=== PATIENT | female | born 1980 | race Caucasian/White ===

== ENCOUNTER 2017-04-28 19:49 | Emergency (ER) | payer MEDICAID ==
[~2017-04-28] VITALS: Ht 160 cm; Wt 70.9 kg
[2017-04-29] MEDS ORDERED: ONDANSETRON 4MG ODT PO STA (01:31)
[2017-04-29] MEDS ORDERED: KETOROLAC 60MG/2ML VIAL IM STA (01:31)
[2017-04-29 01:47] LABS: BASOPHILS % 0.6 % (0.0-2.0); EOSINOPHILS % 2.4 % (0.0-5.0); HEMATOCRIT. 36.5 % (36.0-48.0); HEMOGLOBIN. 12.6 g/dL (12.0-16.0); LYMPHOCYTES % 25.4 % (20.0-50.0); MEAN CORPUSCULAR HEMOGLOBIN 32.4 pg (28.0-32.0); MEAN CORPUSCULAR VOLUME 94.2 fL (81.0-99.0); MEAN PLATELET VOLUME 8.6 fl (7.4-10.4); MONOCYTES % 7.6 % (2.0-8.0); PLATELET 259 x1000/uL (130-400); RED BLOOD CELL COUNT 3.88 mill/uL (4.2-5.4); RED CELL DISTRIBUTION WIDTH 15.1 % (11.6-14.6)
[2017-04-29 01:53] LABS: CHLORIDE 107 mEq/L (98-107)
[2017-04-29 01:54] LABS: CLARITY URINE CLEAR (CLEAR); COLOR URINE YELLOW (YELLOW); GLUCOSE URINE NEGATIVE (NEGATIVE); KETONES URINE NEGATIVE (NEGATIVE); LEUKOCYTE ESTERASE URINE 1+ (NEGATIVE); NITRITE URINE NEGATIVE (NEGATIVE); OCCULT BLOOD URINE 1+ (NEGATIVE); PH URINE 5.5 (4.5-8.0); PROTEIN URINE NEGATIVE (NEGATIVE); SPECIFIC GRAVITY URINE 1.023 (1.005-1.030)
[2017-04-29 02:03] LABS: CARBON DIOXIDE 27 mEq/L (21-32)
[2017-04-29 02:15] VITALS: BP 137/81
== END 2017-04-29 02:58 | disposition home or self-care (01) ==
LOC: ER 19:49
DX: N39.0 Urinary tract infection, site not specified (principal); J45.909 Unspecified asthma, uncomplicated; F17.210 Nicotine dependence, cigarettes, uncomplicated; F12.10 Cannabis abuse, uncomplicated
CPT/HCPCS: 36415; 80053; 81001; 83690; 85025; 96372; 99284; J1885; Q0162

== ENCOUNTER 2018-06-13 19:05 | Emergency (ER) | payer MEDICAID ==
[~2018-06-13] VITALS: Ht 160 cm; Wt 73.0 kg
[2018-06-13] MEDS ORDERED: IBUPROFEN 600MG TABLET PO ONE (20:15)
[2018-06-13 20:36] VITALS: BP 117/82
== END 2018-06-13 22:17 | disposition home or self-care (01) ==
LOC: ER 19:05
DX: L03.116 Cellulitis of left lower limb (principal); F17.210 Nicotine dependence, cigarettes, uncomplicated
CPT/HCPCS: 73562; 99284

== ENCOUNTER 2019-01-04 13:37 | Emergency (ER) | payer MEDICAID ==
[~2019-01-04] VITALS: Ht 157.5 cm; Wt 90.0 kg
[2019-01-04] MEDS ORDERED: IBUPROFEN 600MG TABLET PO STA (14:54)
[2019-01-04 15:19] LABS: CHLORIDE 109 mEq/L (98-107)
[2019-01-04 15:21] LABS: BASOPHILS % 0.7 % (0.0-2.0); EOSINOPHILS % 2.6 % (0.0-5.0); HEMATOCRIT. 32.2 % (36.0-48.0); HEMOGLOBIN. 10.8 g/dL (12.0-16.0); LYMPHOCYTES % 29.4 % (20.0-50.0); MEAN CORPUSCULAR VOLUME 89.1 fL (81.0-99.0); MEAN PLATELET VOLUME 8.7 fl (7.4-10.4); MONOCYTES % 7.6 % (2.0-8.0); NEUTROPHILS % 59.7 % (40.0-76.0); PLATELET 266 x1000/uL (130-400); RED BLOOD CELL COUNT 3.61 mill/uL (4.2-5.4)
[2019-01-04 16:50] VITALS: BP 120/75
== END 2019-01-04 16:52 | disposition home or self-care (01) ==
LOC: ER 13:37
DX: R07.9 Chest pain, unspecified (principal); J45.909 Unspecified asthma, uncomplicated; F17.200 Nicotine dependence, unspecified, uncomplicated; Z98.890 Other specified postprocedural states
CPT/HCPCS: 36415; 71045; 81025; 84484; 93005; 99284

== ENCOUNTER 2019-03-28 16:19 | Emergency (ER) | payer MEDICAID ==
[~2019-03-28] VITALS: Ht 160 cm; Wt 77.0 kg
[2019-03-28] MEDS ORDERED: ALBUTEROL (0.083%) 2.5MG/3ML NEB HHN STA (18:11)
[2019-03-28] MEDS ORDERED: IPRATROPIUM BROMIDE (0.02%) 0.5MG/2.5ML NEB HHN STA (18:11)
[2019-03-28] MEDS ORDERED: PREDNISONE 20MG TABLET PO STA (18:11)
[2019-03-28 20:00] VITALS: BP 124/73
== END 2019-03-28 20:03 | disposition home or self-care (01) ==
LOC: ER 16:19
DX: J45.901 Unspecified asthma with (acute) exacerbation (principal); Z98.890 Other specified postprocedural states
CPT/HCPCS: 94644; 99285; J7512; J7611

== ENCOUNTER 2019-10-20 12:29 | Emergency (ER) | payer MEDICAID ==
[~2019-10-20] VITALS: Ht 160 cm; Wt 82.0 kg
[2019-10-20 12:44] VITALS: BP 117/78
[2019-10-20] MEDS ORDERED: ACETAMINOPHEN 325MG TABLET PO ONE (15:00)
[2019-10-20 15:37] LABS: CLARITY URINE CLOUDY (CLEAR); COLOR URINE YELLOW (YELLOW); KETONES URINE TRACE (NEGATIVE); LEUKOCYTE ESTERASE URINE 1+ (NEGATIVE); NITRITE URINE NEGATIVE (NEGATIVE); OCCULT BLOOD URINE 1+ (NEGATIVE); PH URINE 5.5 (4.5-8.0); PROTEIN URINE 1+ (NEGATIVE); SPECIFIC GRAVITY URINE 1.033 (1.005-1.030)
== END 2019-10-20 17:10 | disposition home or self-care (01) ==
LOC: ER 12:39
DX: J06.9 Acute upper respiratory infection, unspecified (principal); J02.8 Acute pharyngitis due to other specified organisms; J45.909 Unspecified asthma, uncomplicated; N39.0 Urinary tract infection, site not specified; Z98.890 Other specified postprocedural states
CPT/HCPCS: 81003; 81025; 99283

== ENCOUNTER 2021-06-14 12:11 | Emergency (ER) | payer MEDICAID ==
[~2021-06-14] VITALS: Ht 160 cm; Wt 85.0 kg
[~2021-06-14 12:11] MED LIST: IBUP-2029 MT; METR500T MT; NITR-87 MT
[2021-06-14 23:28] LABS: BASOPHILS % 0.6 % (0.0-2.0); EOSINOPHILS % 1.2 % (0.0-5.0); HEMATOCRIT. 31.4 % (36.0-48.0); HEMOGLOBIN. 10.6 g/dL (12.0-16.0); MEAN CORPUSCULAR VOLUME 85.7 fL (81.0-99.0); MEAN PLATELET VOLUME 8.7 fl (7.4-10.4); MONOCYTES % 5.5 % (2.0-8.0); NEUTROPHILS % 61.7 % (40.0-76.0); PLATELET 310 x1000/uL (130-400); RED BLOOD CELL COUNT 3.67 mill/uL (4.2-5.4); RED CELL DISTRIBUTION WIDTH 16.5 % (11.6-14.6)
[2021-06-14 23:31] LABS: CHLORIDE 109 mEq/L (98-107)
[2021-06-15] MEDS ORDERED: FERR324T4 MT (00:07)
[2021-06-15] MEDS ORDERED: KETOROLAC 30MG/ML VIAL IV ONE (00:15)
[2021-06-15] MEDS ORDERED: IBUP-2029 MT (00:17)
[2021-06-15] MEDS ORDERED: HYDROCODONE/ACETAMINOPHEN 5/325MG TABLET PO ONE (00:30)
[2021-06-15 00:37] VITALS: BP 130/93
== END 2021-06-15 02:04 | disposition home or self-care (01) ==
LOC: ER 12:11
DX: R51.9 Headache, unspecified (principal); D64.9 Anemia, unspecified; F15.23 Other stimulant dependence with withdrawal; J45.909 Unspecified asthma, uncomplicated; Z87.891 Personal history of nicotine dependence; Z98.890 Other specified postprocedural states; Z79.899 Other long term (current) drug therapy
CPT/HCPCS: 36415; 71045; 80053; 85025; 93005; 96374; 99285; J1885

== ENCOUNTER 2021-07-19 17:21 | Emergency (ER) | payer MEDICAID ==
[~2021-07-19] VITALS: Ht 160 cm; Wt 77.0 kg
[~2021-07-19 17:21] MED LIST changes: +FERR324T4 MT
[2021-07-19] MEDS ORDERED: AZITHROMYCIN 500 MG TABLET PO ONE (18:15)
[2021-07-19] MEDS ORDERED: CEFTRIAXONE SODIUM 500 MG/VIAL IM ONE (18:15)
[2021-07-19] MEDS ORDERED: METRONIDAZOLE 500MG TABLET PO ONE (18:15)
[2021-07-19 20:24] LABS: CLARITY URINE CLOUDY (CLEAR); COLOR URINE YELLOW (YELLOW); KETONES URINE 2+ (NEGATIVE); LEUKOCYTE ESTERASE URINE 3+ (NEGATIVE); NITRITE URINE POSITIVE (NEGATIVE); OCCULT BLOOD URINE 3+ (NEGATIVE); PH URINE 5.5 (4.5-8.0); PROTEIN URINE 2+ (NEGATIVE); SPECIFIC GRAVITY URINE 1.026 (1.005-1.030)
[2021-07-19] MEDS ORDERED: LIDOCAINE HCL 1% 20ML VIAL (Pyxis) INJ INFIL ONE (21:30)
[2021-07-19] MEDS ORDERED: LIDOCAINE HCL 1% 10 MG/ML 10ML VIAL IJ SCH (21:30)
[2021-07-19] MEDS ORDERED: CEPH500T MT (23:20)
[2021-07-19] MEDS ORDERED: METR-167 MT (23:22)
[2021-07-20 00:10] VITALS: BP 136/77
[2021-07-23 04:07] LABS: NEISSERIA GONORRHOEAE NAA Positive (Negative)
== END 2021-07-20 00:12 | disposition home or self-care (01) ==
LOC: ER 17:21
DX: R30.0 Dysuria (principal); J45.909 Unspecified asthma, uncomplicated; Z98.890 Other specified postprocedural states; Z79.899 Other long term (current) drug therapy
CPT/HCPCS: 81003; 86592; 87077; 87086; 87186; 87210; 87491; 87591; 96372; 99283; J0696; J3490; Z7610; 87529

== ENCOUNTER 2021-09-13 18:29 | Emergency (ER) | payer MEDICAID ==
[~2021-09-13] VITALS: Ht 160 cm; Wt 77.0 kg
[~2021-09-13 18:29] MED LIST changes: +CEPH500T MT; +METR-167 MT
[2021-09-14] MEDS ORDERED: FAMOTIDINE 20MG/2ML VIAL IV STA (00:14)
[2021-09-14] MEDS ORDERED: VISCOUS LIDOCAINE 2% 15 ML UDC PO STA (00:14)
[2021-09-14] MEDS ORDERED: MAGNESIUM/ALUMINUM HYDROXIDE/SIMETHICONE 30ML UDC PO STA (00:14)
[2021-09-14] MEDS ORDERED: SODIUM CHLORIDE 0.9% 1,000 ML IV ONE (00:15)
[2021-09-14 00:40] LABS: BASOPHILS % 0.9 % (0.0-2.0); EOSINOPHILS % 2.6 % (0.0-5.0); HEMATOCRIT. 29.9 % (36.0-48.0); LYMPHOCYTES % 37.9 % (20.0-50.0); MEAN CORPUSCULAR HEMOGLOBIN 29.6 pg (28.0-32.0); MEAN CORPUSCULAR VOLUME 88.3 fL (81.0-99.0); MEAN PLATELET VOLUME 8.3 fl (7.4-10.4); MONOCYTES % 8.2 % (2.0-8.0); NEUTROPHILS % 50.4 % (40.0-76.0); PLATELET 282 x1000/uL (130-400); RED BLOOD CELL COUNT 3.39 mill/uL (4.2-5.4); RED CELL DISTRIBUTION WIDTH 15.8 % (11.6-14.6)
[2021-09-14 00:45] LABS: CHLORIDE 112 mEq/L (98-107)
[2021-09-14 01:19] LABS: HCG SCREEN NEGATIVE
[2021-09-14 01:46] LABS: CLARITY URINE CLEAR (CLEAR); COLOR URINE YELLOW (YELLOW); KETONES URINE NEGATIVE (NEGATIVE); LEUKOCYTE ESTERASE URINE NEGATIVE (NEGATIVE); NITRITE URINE NEGATIVE (NEGATIVE); OCCULT BLOOD URINE 3+ (NEGATIVE); PROTEIN URINE NEGATIVE (NEGATIVE); SPECIFIC GRAVITY URINE 1.021 (1.005-1.030); UROBILINOGEN URINE 0.2 E.U./dL (0.2-1.0)
[2021-09-14] MEDS ORDERED: FAMO-135 MT (01:57)
[2021-09-14] MEDS ORDERED: ONDA4TAB5 MT (01:57)
[2021-09-14 02:43] VITALS: BP 121/66
== END 2021-09-14 03:00 | disposition home or self-care (01) ==
LOC: ER 18:29
DX: T36.1X2A Poisoning by cephalosporins and other beta-lactam antibiotics, intentional self-harm, initial encounter (principal); T36.0X2A Poisoning by penicillins, intentional self-harm, initial encounter; T39.312A Poisoning by propionic acid derivatives, intentional self-harm, initial encounter; E86.0 Dehydration; J45.909 Unspecified asthma, uncomplicated; Z98.890 Other specified postprocedural states; Z79.899 Other long term (current) drug therapy; Y92.89 Other specified places as the place of occurrence of the external cause
CPT/HCPCS: 36415; 80053; 81003; 83690; 84703; 85025; 93005; 96361; 96374; 99284; J3490; J7030

== ENCOUNTER 2021-09-15 13:15 | Emergency (ER) | payer MEDICAID ==
[~2021-09-15] VITALS: Ht 160 cm; Wt 80.0 kg
[~2021-09-15 13:15] MED LIST changes: +FAMO-135 MT; +ONDA4TAB5 MT
[2021-09-15 13:34] VITALS: BP 147/90
[2021-09-15 16:08] LABS: BASOPHILS % 0.8 % (0.0-2.0); EOSINOPHILS % 2.3 % (0.0-5.0); HEMOGLOBIN. 10.1 g/dL (12.0-16.0); LYMPHOCYTES % 29.5 % (20.0-50.0); MEAN CORPUSCULAR HEMOGLOBIN 28.7 pg (28.0-32.0); MEAN CORPUSCULAR VOLUME 87.8 fL (81.0-99.0); MEAN PLATELET VOLUME 8.3 fl (7.4-10.4); MONOCYTES % 6.3 % (2.0-8.0); NEUTROPHILS % 61.1 % (40.0-76.0); PLATELET 305 x1000/uL (130-400); RED BLOOD CELL COUNT 3.54 mill/uL (4.2-5.4); RED CELL DISTRIBUTION WIDTH 16.3 % (11.6-14.6)
[2021-09-15 16:14] LABS: CHLORIDE 110 mEq/L (98-107)
== END 2021-09-15 19:21 | disposition left against medical advice (07) ==
LOC: ER 13:15
DX: R07.89 Other chest pain (principal)
CPT/HCPCS: 36415; 71045; 80053; 83880; 84484; 85025; 93005; 99285

== ENCOUNTER 2021-12-03 19:25 | Emergency (ER) | payer MEDICAID ==
[~2021-12-03] VITALS: Ht 160 cm; Wt 78.0 kg
[2021-12-03] MEDS ORDERED: LIDOCAINE HCL 1% 20ML VIAL (Pyxis) INJ INFIL ONE (23:00)
[2021-12-03] MEDS ORDERED: CEFTRIAXONE SODIUM 500 MG/VIAL IM ONE (23:00)
[2021-12-03] MEDS ORDERED: DOXYCYCLINE HYCLATE 100MG CAPSULE PO ONE (23:00)
[2021-12-04] MEDS ORDERED: DOXY100C5 MT (00:30)
[2021-12-04 01:03] VITALS: BP 126/75
[2021-12-07 04:07] LABS: NEISSERIA GONORRHOEAE NAA Negative (Negative)
== END 2021-12-04 01:05 | disposition home or self-care (01) ==
LOC: ER 19:25
DX: J06.9 Acute upper respiratory infection, unspecified (principal); Z20.2 Contact with and (suspected) exposure to infections with a predominantly sexual mode of transmission
CPT/HCPCS: 87210; 87491; 87591; 96372; 99283; J0696; J3490

== ENCOUNTER 2022-05-12 09:15 | Emergency (ER) | payer MEDICAID ==
[~2022-05-12] VITALS: Ht 160 cm; Wt 78.0 kg
[~2022-05-12 09:15] MED LIST changes: +DOXY100C5 MT
[2022-05-12] MEDS ORDERED: IBUPROFEN 600MG TABLET PO ONE (11:00)
[2022-05-12] MEDS ORDERED: DIPHENHYDRAMINE 25MG CAPSULE PO ONE (11:00)
[2022-05-12] MEDS ORDERED: IBUP-2029 MT (11:09)
[2022-05-12] MEDS ORDERED: DIPH28.34 TP (11:09)
[2022-05-12] MEDS ORDERED: CEPH500C2 MT (11:09)
[2022-05-12 12:16] VITALS: BP 132/82
== END 2022-05-12 12:18 | disposition home or self-care (01) ==
LOC: ER 10:10
DX: S90.562A Insect bite (nonvenomous), left ankle, initial encounter (principal); L03.116 Cellulitis of left lower limb; W57.XXXA Bitten or stung by nonvenomous insect and other nonvenomous arthropods, initial encounter; Y93.89 Activity, other specified; Y92.018 Other place in single-family (private) house as the place of occurrence of the external cause
CPT/HCPCS: 99283; Q0163

== ENCOUNTER 2023-07-22 23:42 | Emergency (ER) | payer MEDICAID ==
[~2023-07-22] VITALS: Ht 165.1 cm; Wt 70.0 kg
[~2023-07-22 23:42] MED LIST changes: +CEPH500C2 MT; +DIPH28.34 TP
[2023-07-22 23:47] VITALS: O2SAT 98
[2023-07-23] MEDS ORDERED: LIDOCAINE HCL/EPINEPHRINE 1%-EPI 1:100,000 20 ML VIAL INFIL ONE (00:45)
[2023-07-23] MEDS ORDERED: DIPHENHYDRAMINE 50MG/ML VIAL IM ONE (00:45)
[2023-07-23] MEDS ORDERED: SODIUM CHLORIDE 0.9% 1,000 ML IV ONE (00:45)
[2023-07-23] MEDS ORDERED: BACITRACIN ZINC OINT UDPKT TOP ONE ×2 (00:45→02:00)
[2023-07-23] MEDS ORDERED: LIDOCAINE HCL/PF 1% 10 MG/ML 5ML VIAL INFIL ONE (00:45)
[2023-07-23] MEDS ORDERED: HALOPERIDOL LACTATE 5MG/ML VIAL IM ONE (00:45)
[2023-07-23] MEDS ORDERED: TETANUS, DIPHTHERIA, PERTUSSIS VAC/PF 0.5ML (>10YR OLD) IM ONE (00:45)
[2023-07-23] MEDS ORDERED: LORAZEPAM 2MG/ML CPJ IM ONE (00:45)
[2023-07-23 00:57] LABS: BASOPHILS % 0.8 % (0.0-2.0); EOSINOPHILS % 0.7 % (0.0-5.0); HEMATOCRIT. 40.1 % (36.0-48.0); HEMOGLOBIN. 12.8 g/dL (12.0-16.0); LYMPHOCYTES % 33.5 % (20.0-50.0); MEAN CORPUSCULAR HEMOGLOBIN 27.2 pg (28.0-32.0); MEAN CORPUSCULAR HGB CONC 31.9 g/dL (31.0-37.0); MEAN CORPUSCULAR VOLUME 85.1 fL (81.0-99.0); MEAN PLATELET VOLUME 8.7 fl (7.4-10.4); MONOCYTES % 4.8 % (2.0-8.0); NEUTROPHILS % 60.2 % (40.0-76.0); PLATELET 312 x1000/uL (130-400); RED BLOOD CELL COUNT 4.71 mill/uL (4.2-5.4); RED CELL DISTRIBUTION WIDTH 25.4 % (11.6-14.6); WHITE BLOOD COUNT 7.5 x1000/uL (4.5-11.0)
[2023-07-23 00:58] LABS: DIFFERENTIAL COMMENT 1
[2023-07-23 01:01] LABS: ADD RBC MORPHOLOGY YES
[2023-07-23 01:06] LABS: CHLORIDE 117 mEq/L (98-107); INDEX HEMOLYSI 1 (1-3); INDEX ICTERIC 1 (1-4); INDEX LIPEMIC 1 (1-3); POTASSIUM 3.5 mEq/L (3.5-5.1); SODIUM 144 mEq/L (136-145)
[2023-07-23 01:17] LABS: ALANINE AMINOTRANSFERASE 19 IU/L (13-61); ALBUMIN 4.3 g/dL (3.4-5.0); ASPARTATE AMINOTRANSFERASE 13 IU/L (15-37); BILIRUBIN TOTAL 0.3 mg/dL (0.1-1.0); CALCIUM 8.7 mg/dL (8.5-10.1); CARBON DIOXIDE 20 mEq/L (21-32); CREATININE 0.8 mg/dL (0.6-1.3); ETHANOL BLOOD 293 mg/dL (<10); GLUCOSE 109 mg/dL (70-105); PROTEIN TOTAL 8.3 g/dL (6.0-8.3); UREA NITROGEN BLOOD 14 mg/dL (7-21)
[2023-07-23 01:25] LABS: HCG SCREEN NEGATIVE
[2023-07-23 05:23] LABS: ANISOCYTOSIS 1+; PLATELET ESTIMATE NORMAL
[2023-07-23 14:20] LABS: CLARITY URINE CLEAR (CLEAR); COLOR URINE YELLOW (YELLOW); GLUCOSE URINE NEGATIVE (NEGATIVE); KETONES URINE NEGATIVE (NEGATIVE); LEUKOCYTE ESTERASE URINE NEGATIVE (NEGATIVE); NITRITE URINE NEGATIVE (NEGATIVE); OCCULT BLOOD URINE NEGATIVE (NEGATIVE); PH URINE 5.5 (4.5-8.0); PROTEIN URINE 1+ (NEGATIVE); SPECIFIC GRAVITY URINE 1.019 (1.005-1.030); UROBILINOGEN URINE 0.2 E.U./dL (0.2-1.0)
[2023-07-23 14:42] LABS: *AMPHETAMINES SCREEN URINE NEGATIVE (NEGATIVE); *BARBITURATES SCREEN URINE NEGATIVE (NEGATIVE); *BENZODIAZEPINES SCREEN URINE NEGATIVE (NEGATIVE); *COCAINE SCREEN URINE NEGATIVE (NEGATIVE); ECSTASY MDMA SCREEN URINE NEGATIVE (NEGATIVE); METHADONE URINE SCREEN NEGATIVE (NEGATIVE); OPIATES URINE SCREEN NEGATIVE (NEGATIVE); PHENCYCLIDINE URINE SCREEN NEGATIVE (NEGATIVE)
[2023-07-23 14:45] LABS: BACTERIA URINE TRACE; SQUAMOUS EPITHELIAL CELL URINE FEW /lpf (RARE/1+)
[2023-07-23 14:46] LABS: MUCUS URINE TRACE /lpf (< = 2+); RBC URINE NONE SEEN /hpf (0-2)
[2023-07-23 14:53] LABS: CANNABINOID URINE SCREEN PRESUMTIVE POSITIVE (NEGATIVE)
[2023-07-25 02:03] VITALS: BP 147/91; PULSE 67; RESP 18; TEMP 98.6
== END 2023-07-25 02:20 | disposition short-term general hospital (02) ==
LOC: ER 23:42
DX: R45.851 Suicidal ideations (principal); S61.512A Laceration without foreign body of left wrist, initial encounter; Z20.822 Contact with and (suspected) exposure to COVID-19; X83.8XXA Intentional self-harm by other specified means, initial encounter; Y93.89 Activity, other specified; Y92.89 Other specified places as the place of occurrence of the external cause; Y99.8 Other external cause status
CPT/HCPCS: 80053; 80305; 81003; 80320; 84703; 85025; 36415; 12002; 99285; 87426; 90715; 90471; 96372; C9803; J1200; J3490 ×2; J2060; J7030; G0480

== ENCOUNTER 2024-02-02 02:54 | Emergency (ER) | payer MEDICAID ==
[~2024-02-02] VITALS: Ht 160 cm; Wt 81.0 kg
[2024-02-02 02:59] VITALS: TEMP 98.4; O2SAT 99
[2024-02-02] MEDS ORDERED: AMLO2.5T45 PO (05:52)
[2024-02-02] MEDS ORDERED: P50 PO (05:52)
[2024-02-02] MEDS: PREDNISONE 20MG TABLET PO ONE (06:00)
[2024-02-02] MEDS: DIPHENHYDRAMINE 50MG CAPSULE PO ONE (06:00)
[2024-02-02] MEDS: FAMOTIDINE 20MG TABLET PO ONE (06:00)
[2024-02-02] MEDS: DIPHENHYDRAMINE 25MG CAPSULE PO NR (06:15)
[2024-02-02 06:27] VITALS: BP 135/77; PULSE 88; RESP 18
== END 2024-02-02 06:20 | disposition home or self-care (01) ==
LOC: ER 02:54
DX: T78.40XA Allergy, unspecified, initial encounter (principal); I10 Essential (primary) hypertension; J45.909 Unspecified asthma, uncomplicated; Z79.899 Other long term (current) drug therapy; X58.XXXA Exposure to other specified factors, initial encounter
CPT/HCPCS: 99284; Q0163 ×2; J7512

== ENCOUNTER 2024-06-18 05:58 | Emergency (ER) | payer MEDICAID ==
[~2024-06-18] VITALS: Ht 160 cm; Wt 73.0 kg
[~2024-06-18 05:58] MED LIST changes: +AMLO2.5T45 PO; +P50 PO
[2024-06-18 06:04] VITALS: O2SAT 100
[2024-06-18 08:00] VITALS: BP 135/105; PULSE 71; RESP 16; TEMP 97.9
[2024-06-18] MEDS: ACETAMINOPHEN 325MG TABLET PO ONE (08:00)
[2024-06-18] MEDS: IBUPROFEN 600MG TABLET PO ONE (08:00)
[2024-06-18] MEDS ORDERED: IBUP-2029 MT (11:09)
[2024-06-18] MEDS ORDERED: TOPUD MT (11:09)
== END 2024-06-18 11:38 | disposition home or self-care (01) ==
LOC: ER 06:18
DX: S82.001A Unspecified fracture of right patella, initial encounter for closed fracture (principal); J45.909 Unspecified asthma, uncomplicated; I10 Essential (primary) hypertension; D64.9 Anemia, unspecified; F10.20 Alcohol dependence, uncomplicated; Z98.890 Other specified postprocedural states; Z79.899 Other long term (current) drug therapy; X58.XXXA Exposure to other specified factors, initial encounter; Y93.89 Activity, other specified; Y92.89 Other specified places as the place of occurrence of the external cause; Y99.8 Other external cause status
CPT/HCPCS: 73564; 93970; 99284

== ENCOUNTER 2024-09-24 12:48 | Emergency (ER) | payer MEDICAID ==
[~2024-09-24 12:48] MED LIST changes: +TOPUD MT
== END 2024-09-24 20:14 | disposition left against medical advice (07) ==
LOC: ER 12:48
DX: R06.02 Shortness of breath (principal); R07.0 Pain in throat; Z53.21 Procedure and treatment not carried out due to patient leaving prior to being seen by health care provider